=== PATIENT | male | born 1985 | race Caucasian/White ===

== ENCOUNTER 2018-09-04 08:55 | Emergency (ER) | payer OTHER ==
[~2018-09-04] VITALS: Ht 180.3 cm; Wt 88.5 kg
== END 2018-09-04 11:03 | disposition home or self-care (01) ==
LOC: ER 08:55
DX: R07.89 Other chest pain (principal); F17.200 Nicotine dependence, unspecified, uncomplicated
CPT/HCPCS: 36415; 71046; 93005; 93010; 99283-25